=== PATIENT | male | born 1960 | race Caucasian/White ===

== ENCOUNTER 2021-03-29 14:37 | Emergency (ER) | payer OTHER ==
[2021-03-29 21:38] LABS: BASOPHIL 0.5 % (0-2); EOSINOPHIL 0.2 % (0-5); HCT 43.2 % (42.0-52.0); HGB 14.7 g/dl (13.2-18.0); MCH 30.5 pg (25.0-31.0); MCV 89.6 fL (78.0-100.0); MONOCYTE 13.6 % (0-12); MPV 9.4 fL (6.0-9.5); NEUTROPHIL 65.5 % (41-80); NRBC 0; PLT 199 K/uL (150-400); RBC 4.82 M/uL (4.70-6.00); RDW 13.1 % (11.5-14.0); WBC 4.4 K/uL (4.0-10.5)
[2021-03-29 21:50] LABS: ALBUMIN 3.8 g/dL (3.4-5.0); BILIRUBIN - TOTAL 0.5 mg/dL (0.2-1.0); BUN/CREAT RATIO (CALC) 10.6 RATIO; CREATININE 0.94 mg/dL (0.67-1.17); GLOBULIN (CALCULATION) 3.3 g/dL; POTASSIUM 3.9 mmol/L (3.5-5.1); TOTAL PROTEIN 7.1 g/dL (6.4-8.2)
== END 2021-03-30 01:00 | disposition home or self-care (01) ==
LOC: FER 14:37
PROVIDERS: Physician Assistant
DX: U07.1 COVID-19 (principal); I10 Essential (primary) hypertension
CPT/HCPCS: 36415; 71045; 80053; 84484; 85025; 93005; U0002